=== PATIENT | female | born 1970 | race Caucasian/White ===

== ENCOUNTER 2017-12-31 18:58 | Emergency (ER) | payer SELFPAY ==
[~2017-12-31] VITALS: Ht 157.5 cm; Wt 77.1 kg
[2017-12-31 19:08] VITALS: Ht 157.5 cm; Wt 77.1 kg
[2017-12-31 20:53] VITALS: BP 112/74
== END 2017-12-31 20:53 | disposition home or self-care (01) ==
LOC: ED 18:58
DX: H66.91 Otitis media, unspecified, right ear (principal); B02.9 Zoster without complications
CPT/HCPCS: J8597